=== PATIENT | male | born 1990 | race Caucasian/White ===

== ENCOUNTER 2018-06-14 16:26 | Emergency (ER) | payer SELFPAY ==
[2018-06-14 16:27] VITALS: BP 137/95
--- NOTE | 2018-06-14 16:28 | ER Report ---
History and Physical Time Seen By MD: 16:27 HPI/ROS CHIEF COMPLAINT: [facility] clearance HISTORY OF PRESENT ILLNESS: 28-year-old male patient presents to emergency room with complaint of intoxication and needing a [facility] clearance. Patient had gone to the [employer] bar this afternoon, he did drink 5 beers as well as 5 shots. He states that he [place] and slept next to a dumpster. Please to calm he was arrested for public intoxication. Patient states he feels fine at this time. Denies any chest pain, shortness of breath, nausea, vomiting or diarrhea. Allergies: Coded Allergies: No Known Drug Allergies (Verified , 06/14/18) Home Meds Discontinued Reported Medications [None] No Conflict Check, 0 Refills 02/02/11 Past Medical/Surgical History Patient has a past medical history of fractures, addiction, bipolar. Patient denies any surgical history. Patient has a family medical history of cancer, CAD, psychiatric problems. Reviewed Nurses Notes: Yes Hx Smoking: Yes Exposure to Second Hand Smoke?: No Hx Substance Use Disorder: Yes Hx Alcohol Use: Yes Constitutional Vital Sign - Last 24 Hours 06/14/18 16:27 Temp 98.7 Pulse 114 Resp 16 B/P (MAP) 137/95 Pulse Ox 91 O2 Delivery Room Air Physical Exam General Appearance: The patient is alert, has no immediate need for airway protection and no current signs of toxicity. Respiratory: Chest is non tender, lungs are clear to auscultation. Cardiac: regular rate and rhythm Gastrointestinal: Abdomen is soft and non tender, no masses, bowel sounds normal. Musculoskeletal: Neck: Neck is supple and non tender. Extremities have full range of motion and are non tender. Skin: No rashes or lesions. DIFFERENTIAL DIAGNOSIS: After history and physical exam differential diagnosis was considered for topical intoxication, general clearance. Medical Decision Making ED Course/Re-evaluation ED Course Patient was admitted to exam room, history and physical were obtained. Differential diagnoses were considered. On examination patient had regular heart rate, lungs are clear. I discussed with patient that he should follow-up with [facility] with any concerns. He is return to emergency room if there is any emergencies. I would encourage him to follow- up with counseling to discuss alcohol abuse. Discusses the patient who verbalized understanding and agreement with plan. [facility] was [facility]. Decision to Disposition Date: Jun 14, 2018 Decision to Disposition Time: 16:37 Depart Departure Latest Vital Signs Vital Signs Date Time Temp Pulse Resp B/P (MAP) Pulse Ox O2 Delivery O2 Flow Rate FiO2 06/14/18 16:27 98.7 114 16 137/95 91 Room Air Impression: Primary Impression: Medical clearance for incarceration Additional Impression: Alcohol intoxication Condition: Improved Disposition: [facility] TO [facility] New Scripts No Active Prescriptions or Reported Meds Patient Instructions: Alcohol Intoxication (ED) Additional Instructions: Increase fluid intake. Get plenty of rest. Follow up with the medical staff at the [facility] with any concerns. Return to the ER with any emergencies. I would encourage you to follow up with counseling to discuss alcohol abuse. Problem Qualifiers Additional Impression: Alcohol intoxication Complication of substance-induced condition: uncomplicated Qualified Codes: F10.920 - Alcohol use, unspecified with intoxication, uncomplicated RAFAEL STARKEY Jun 14, 2018 16:27
== END 2018-06-14 16:42 ==
LOC: ER 16:29
DX: Z02.89 Encounter for other administrative examinations (principal); F10.920 Alcohol use, unspecified with intoxication, uncomplicated
CPT/HCPCS: 99281